=== PATIENT | male | born 1960 | race Caucasian/White ===

== ENCOUNTER 2019-02-28 20:28 | Observation (INO) | payer OTHER ==
[2019-02-28] MEDS: GI Cocktail Oral Solution 30 ML PO ONE (21:04)
[2019-02-28] MEDS: Aspirin 81 MG Tab.Chew PO ONE (21:06)
--- NOTE | 2019-02-28 21:21 | EDM.PDOC ---
ED HPI GENERAL MEDICAL PROBLEM - General Chief Complaint: Abdominal Pain Stated Complaint: c/o abdominal pain Time Seen by Provider: 02/28/19 20:45 Source of Information: Reports: Patient History Limitations: Reports: No Limitations - History of Present Illness INITIAL COMMENTS - FREE TEXT/NARRATIVE: This is a 59yo M with history of CAD and 1 stent placed 2 years ago and currently on BP meds and Plavix. He states he developed abdominal symptoms very soon after eating and feeling nauseated with chest pressure. He notes the symptoms were similar to the time he was diagnosed with CAD and a stent was placed. He has been to the ER twice for other chest complaints with negative workups. He states the symptoms tonight really caused him to worry. 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 Patient also denies any history of GERD or issues after eating. Onset: Today Duration: Hour(s): Location: Reports: Chest, Abdomen Quality: Reports: Pressure Severity: Moderate Improves with: Reports: None Worsens with: Reports: None Associated Symptoms: Reports: Chest Pain, Nausea/Vomiting Abdominal Pain Score (Numeric/FACES): 3 - Related Data Allergies Allergy/AdvReac Type Severity Reaction Status Date / Time iodine Allergy Hives Verified 02/28/19 21:13 Penicillins Allergy Hives Verified 02/28/19 21:13 Home Meds: Home Meds Clopidogrel [Plavix] 75 mg PO DAILY 02/28/19 [History] Enalapril [Vasotec] 20 mg PO BID 02/28/19 [History] Metoprolol Succinate [Toprol XL 50mg] 25 mg PO DAILY 02/28/19 [History] atorvaSTATin Calcium [Lipitor] 80 mg PO DAILY 02/28/19 [History] Past Medical History Cardiovascular History: Reports: CAD, Stents Other Cardiovascular History: stent x1 2017- 90% blocked Respiratory History: Reports: None Genitourinary History: Reports: None - Past Surgical History Head Surgeries/Procedures: Reports: None Cardiovascular Surgical History: Reports: None Respiratory Surgical History: Reports: None GI Surgical History: Reports: None Male Surgical History: Reports: Circumcision Musculoskeletal Surgical History: Reports: Other (See Below) Other Musculoskeletal Surgeries/Procedures:: R) rotater shoulder approx 2013 Social & Family History - Tobacco Use Smoking Status *Q: Never Smoker Second Hand Smoke Exposure: No - Caffeine Use Caffeine Use: Reports: Coffee, Soda ED ROS GENERAL - Review of Systems Review Of Systems: Comprehensive ROS is negative, except as noted in HPI. ED EXAM, GENERAL - Physical Exam Exam: See Below Exam Limited By: No Limitations General Appearance: Alert, WD/WN, Mild Distress Eye Exam: Bilateral Eye: EOMI, PERRL Ears: Normal External Exam Nose: Normal Inspection Throat/Mouth: Normal Inspection Head: Atraumatic, Normocephalic Neck: Normal Inspection, Supple, Non-Tender Respiratory/Chest: No Respiratory Distress, Lungs Clear, Normal Breath Sounds Cardiovascular: Normal Peripheral Pulses, Regular Rate, Rhythm, No Edema Peripheral Pulses: 2+: Dorsalis Pedis (L), Dorsalis Pedis (R) GI/Abdominal: Abnormal Bowel Sounds (hyperactive in all quadrants. ) Back Exam: Normal Inspection Extremities: Normal Inspection Neurological: Alert, Oriented, CN II-XII Intact Psychiatric: Normal Affect, Anxious Skin Exam: Warm, Dry, Intact Course - Vital Signs Last Recorded V/S: Last Vital Signs Temp 36.9 C 03/01/19 08:14 Pulse 65 03/01/19 08:14 Resp 18 03/01/19 08:14 BP 163/77 H 03/01/19 08:14 Pulse Ox 96 03/01/19 08:14 - Orders/Labs/Meds Orders: Active Orders 24 hr Category Date Time Status TROPONIN I [CHEM] Routine Lab 03/01/19 08:00 Received Medication Orders Atorvastatin Calcium (Lipitor) 80 mg PO DAILY [facility] Clopidogrel Bisulfate (Plavix) 75 mg PO DAILY [facility] Enalapril Maleate (Vasotec) 20 mg PO BID [facility] Metoprolol Succinate (Toprol Xl) 25 mg PO DAILY [facility] Labs: Laboratory Tests 02/28/19 02/28/19 Range/Units 20:40 20:40 WBC 7.7 (4.0-11.0) K/uL RBC 4.75 (4.50-6.50) M/uL Hgb 15.1 (13.0-18.0) g/dL Hct 43.2 (40.0-54.0) % MCV 91 (76-96) fL MCH 31.8 (27.0-32.0) pg MCHC 35.0 (31.0-35.0) g/dL RDW 12.6 (11.0-16.0) % Plt Count 187 (150-400) K/uL MPV 11.2 H (6.0-10.0) fL Neut % (Auto) 58.0 (45.0-70.0) % Lymph % (Auto) 28.9 (20.0-40.0) % [place] % (Auto) 10.9 H (3.0-10.0) % Eos % (Auto) 2.1 (1.0-5.0) % Baso % (Auto) 0.1 (0.0-0.5) % Neut # (Auto) 4.48 (2.00-7.50) K/uL Lymph # (Auto) 2.23 (1.50-4.00) K/uL [place] # (Auto) 0.84 H (0.20-0.80) K/uL Eos # (Auto) 0.16 (0.04-0.40) K/uL Baso # (Auto) 0.01 L (0.02-0.10) K/uL Sodium 141 (136-145) mmol/L Potassium 3.9 (3.5-5.1) mmol/L Chloride 105 (98-107) mmol/L Carbon Dioxide 27.1 (21.0-32.0) mmol/L Anion Gap 12.8 (5.0-15.0) mmol/L BUN 18 (8-26) mg/dL Creatinine 1.14 (0.70-1.30) mg/dL Est Cr Clr Drug Dosing TNP Estimated GFR (MDRD) > 60 (>60) MLS/MIN BUN/Creatinine Ratio 15.8 (6-25) Glucose 127 H (74-100) mg/dL Calcium 8.1 L (8.5-10.1) mg/dL Troponin I < 0.017 (0.000-0.060) ng/mL Meds: Medications Generic Name Dose Route Start Last Admin Trade Name Freq PRN Reason Stop Dose Admin Atorvastatin Calcium 80 mg 03/01/19 08:00 Lipitor PO DAILY [facility] Clopidogrel Bisulfate 75 mg 03/01/19 08:00 Plavix PO DAILY [facility] Enalapril Maleate 20 mg 03/01/19 08:00 Vasotec PO BID [facility] Metoprolol Succinate 25 mg 03/01/19 08:00 Toprol Xl PO DAILY [facility] Discontinued Medications Generic Name Dose Route Start Last Admin Trade Name Asael PRN Reason Stop Dose Admin Al Hydroxide/Mg Hydroxide 30 ml 02/28/19 21:00 02/28/19 21:04 Gi Cocktail PO 02/28/19 21:01 30 ml ONETIME ONE Administration Aspirin 324 mg 02/28/19 21:04 02/28/19 21:06 Aspirin PO 02/28/19 21:05 324 mg ONETIME ONE Administration Enalapril Maleate Confirm 02/28/19 22:05 Vasotec Administered 02/28/19 22:06 Dose 20 mg .ROUTE .STK-MED ONE Departure - Departure Time of Disposition: 21:18 Disposition: Refer to Observation Condition: Good Clinical Impression: Chest heaviness - Problem List & Annotations (1) ACS (acute coronary syndrome) SNOMED Code(s): 607829637 Code(s): I24.9 - ACUTE ISCHEMIC HEART DISEASE, UNSPECIFIED Status: Acute Priority: High Current Visit: Yes (2) Chest heaviness SNOMED Code(s): 178866026, 367387936 Code(s): R07.89 - OTHER CHEST PAIN Status: Acute Priority: High Current Visit: Yes - Problem List Review Problem List Initiated/Reviewed/Updated: Yes - My Orders Last 24 Hours: My Active Orders 03/01/19 08:00 TROPONIN I [CHEM] Routine - Assessment/Plan Last 24 Hours: My Active Orders 03/01/19 08:00 TROPONIN I [CHEM] Routine Plan: Patient placed in observation for management of ACS symptoms. We will do serial troponins. Patient to be placed on telemetry and f/u labs. Pain controlled. Minimal chest heaviness at this time. GI cocktail did improve symptoms.
[2019-03-01] MEDS ORDERED: Metoprolol Succinate 50 MG Tab.ER PO SCH (08:00)
[2019-03-01] MEDS ORDERED: Enalapril 5 MG Tab PO SCH (08:00)
[2019-03-01] MEDS ORDERED: Clopidogrel 75 MG Tab PO SCH (08:00)
[2019-03-01] MEDS ORDERED: atorvaSTATin 40 MG Tab PO SCH (08:00)
[2019-03-01 08:20] VITALS: BP 163/77; PULSE 65
--- NOTE | 2019-03-01 10:32 | PCM.DCSUM1 ---
Discharge Summary - Discharge Data Discharge Date: 03/01/19 Discharge Disposition: Home, Self-Care 01 Condition: Good - Referral to Home Health Primary Care Physician: PCP None - Discharge Diagnosis/Problem(s) (1) ACS (acute coronary syndrome) SNOMED Code(s): 035877090 ICD Code: I24.9 - ACUTE ISCHEMIC HEART DISEASE, UNSPECIFIED Status: Suspected Priority: High (2) Chest heaviness SNOMED Code(s): 013590145, 709179500 ICD Code: R07.89 - OTHER CHEST PAIN Status: Resolved Priority: High - Patient Instructions Diet: Heart Healthy Diet Activity: As Tolerated - Discharge Plan Home Medications: Home Meds Clopidogrel [Plavix] 75 mg PO DAILY 02/28/19 [History] Enalapril [Vasotec] 20 mg PO BID 02/28/19 [History] Metoprolol Succinate [Toprol XL 50mg] 25 mg PO DAILY 02/28/19 [History] atorvaSTATin Calcium [Lipitor] 80 mg PO DAILY 02/28/19 [History] Patient Handouts: Nonspecific Chest Pain Forms: ED Department Discharge, ED Return to Work/School Form Referrals: PCP,None [Primary Care Provider] - - Discharge Summary/Plan Comment DC Time >30 min.: No Discharge Summary/Plan Comment: Counseled on f/u with his PCP and Cardiology for further management as needed and assessment. Discussed f/u rtc or ER if symptoms return. Discussed continuing current medications and f/u questions as needed. Discussed negative troponins. - General Info Date of Service: 03/01/19 Functional Status: Reports: Pain Controlled, Tolerating Diet, Ambulating - Review of Systems General: Reports: No Symptoms HEENT: Reports: No Symptoms Pulmonary: Reports: No Symptoms Cardiovascular: Reports: No Symptoms Gastrointestinal: Reports: No Symptoms Genitourinary: Reports: No Symptoms Musculoskeletal: Reports: No Symptoms Skin: Reports: No Symptoms Neurological: Reports: No Symptoms Psychiatric: Reports: No Symptoms - Patient Data Vitals - Most Recent: Last Vital Signs Temp 36.9 C 03/01/19 08:14 Pulse 65 03/01/19 08:14 Resp 18 03/01/19 08:14 BP 163/77 H 03/01/19 08:14 Pulse Ox 96 03/01/19 08:14 Weight - Most Recent: 105.415 kg Lab Results - Last 24 hrs: Laboratory Results - last 24 hr 12/09/19 12/09/19 12/09/19 Range/Units 20:40 20:40 23:40 WBC 7.7 (4.0-11.0) K/uL RBC 4.75 (4.50-6.50) M/uL Hgb 15.1 (13.0-18.0) g/dL Hct 43.2 (40.0-54.0) % MCV 91 (76-96) fL MCH 31.8 (27.0-32.0) pg MCHC 35.0 (31.0-35.0) g/dL RDW 12.6 (11.0-16.0) % Plt Count 187 (150-400) K/uL MPV 11.2 H (6.0-10.0) fL Neut % (Auto) 58.0 (45.0-70.0) % Lymph % (Auto) 28.9 (20.0-40.0) % [place] % (Auto) 10.9 H (3.0-10.0) % Eos % (Auto) 2.1 (1.0-5.0) % Baso % (Auto) 0.1 (0.0-0.5) % Neut # (Auto) 4.48 (2.00-7.50) K/uL Lymph # (Auto) 2.23 (1.50-4.00) K/uL [place] # (Auto) 0.84 H (0.20-0.80) K/uL Eos # (Auto) 0.16 (0.04-0.40) K/uL Baso # (Auto) 0.01 L (0.02-0.10) K/uL Sodium 141 (136-145) mmol/L Potassium 3.9 (3.5-5.1) mmol/L Chloride 105 (98-107) mmol/L Carbon Dioxide 27.1 (21.0-32.0) mmol/L Anion Gap 12.8 (5.0-15.0) mmol/L BUN 18 (8-26) mg/dL Creatinine 1.14 (0.70-1.30) mg/dL Est Cr Clr Drug Dosing TNP Estimated GFR (MDRD) > 60 (>60) MLS/MIN BUN/Creatinine Ratio 15.8 (6-25) Glucose 127 H (74-100) mg/dL Calcium 8.1 L (8.5-10.1) mg/dL Troponin I < 0.017 < 0.017 (0.000-0.060) ng/mL 03/01/19 Range/Units 08:00 WBC (4.0-11.0) K/uL RBC (4.50-6.50) M/uL Hgb (13.0-18.0) g/dL Hct (40.0-54.0) % MCV (76-96) fL MCH (27.0-32.0) pg MCHC (31.0-35.0) g/dL RDW (11.0-16.0) % Plt Count (150-400) K/uL MPV (6.0-10.0) fL Neut % (Auto) (45.0-70.0) % Lymph % (Auto) (20.0-40.0) % [place] % (Auto) (3.0-10.0) % Eos % (Auto) (1.0-5.0) % Baso % (Auto) (0.0-0.5) % Neut # (Auto) (2.00-7.50) K/uL Lymph # (Auto) (1.50-4.00) K/uL [place] # (Auto) (0.20-0.80) K/uL Eos # (Auto) (0.04-0.40) K/uL Baso # (Auto) (0.02-0.10) K/uL Sodium (136-145) mmol/L Potassium (3.5-5.1) mmol/L Chloride (98-107) mmol/L Carbon Dioxide (21.0-32.0) mmol/L Anion Gap (5.0-15.0) mmol/L BUN (8-26) mg/dL Creatinine (0.70-1.30) mg/dL Est Cr Clr Drug Dosing Estimated GFR (MDRD) (>60) MLS/MIN BUN/Creatinine Ratio (6-25) Glucose (74-100) mg/dL Calcium (8.5-10.1) mg/dL Troponin I < 0.017 (0.000-0.060) ng/mL Med Orders - Current: Current Medications Discontinued Medications Al Hydroxide/Mg Hydroxide (Gi Cocktail) 30 ml PO ONETIME ONE Stop: 02/28/19 21:01 Last Admin: 02/28/19 21:04 Dose: 30 ml Aspirin (Aspirin) 324 mg PO ONETIME ONE Stop: 02/28/19 21:05 Last Admin: 02/28/19 21:06 Dose: 324 mg Atorvastatin Calcium (Lipitor) 80 mg PO DAILY [facility] Clopidogrel Bisulfate (Plavix) 75 mg PO DAILY [facility] Enalapril Maleate (Vasotec) 20 mg PO BID [facility] Enalapril Maleate (Vasotec) Confirm Administered Dose 20 mg .ROUTE .STK-MED ONE Stop: 02/28/19 22:06 Metoprolol Succinate (Toprol Xl) 25 mg PO DAILY [facility] - Exam General: Reports: Alert, Oriented, Cooperative HEENT: Reports: Pupils Equal, Pupils Reactive, EOMI Neck: Reports: Supple Lungs: Reports: Clear to Auscultation, Normal Respiratory Effort Cardiovascular: Reports: Regular Rate, Regular Rhythm GI/Abdominal Exam: Normal Bowel Sounds, Soft, Non-Tender Back Exam: Reports: Normal Inspection Extremities: Normal Inspection
== END 2019-03-01 08:49 | disposition home or self-care (01) ==
LOC: LB.ED 20:28 → LB.MS 21:18 → UNDOADMOB 21:20
PROVIDERS: ADMIT Family Medicine; ATTEND Family Medicine
DX: I24.9 Acute ischemic heart disease, unspecified (principal); I25.10 Atherosclerotic heart disease of native coronary artery without angina pectoris; K21.9 Gastro-esophageal reflux disease without esophagitis; Z88.8 Allergy status to other drugs, medicaments and biological substances; Z79.899 Other long term (current) drug therapy; Z95.5 Presence of coronary angioplasty implant and graft
CPT/HCPCS: 36415; 80048; 84484; 85025; 93005; 99285-25; A9270-GY; G0378